=== PATIENT | female | born 1970 | race African-American/Black ===

== ENCOUNTER 2020-08-22 13:56 | Inpatient (IN) | payer OTHER ==
[2020-08-22] MEDS ORDERED: MAG HYDROX/AL HYDROX/SIMETH 30 ML UNIT-DOSE CUP PO PRN (14:58)
[2020-08-22] MEDS ORDERED: MAGNESIUM HYDROX 2400MG/30ML ORAL SUSPENSION 30 ML CUP PO PRN (14:58)
[2020-08-22] MEDS ORDERED: ACETAMINOPHEN 325 MG TABLET (FP) PO PRN ×2 (14:58)
[2020-08-22] MEDS ORDERED: MENTHOL/PHENOL 1 EACH UD MM PRN (14:58)
[2020-08-22] MEDS ORDERED: MAGNESIUM CITRATE 300 ML BOTTLE PO PRN (14:58)
[2020-08-22] MEDS ORDERED: ONDANSETRON *ODT* 4 MG TABLET SL PRN (14:58)
[2020-08-22] MEDS ORDERED: BISMUTH SUBSALICYLATE 524 MG/30 ML UD PO PRN (14:58)
[2020-08-22 15:37] VITALS: BMI 32.9
[2020-08-22 16:43] LABS: HEMATOCRIT 38.4 % (32.4-45.2); HEMOGLOBIN 13.7 GM/dL (10.7-15.3); MCH 35.8 pg (25.7-33.7); MCHC 35.6 g/dl (32.0-36.0); MEAN CELL VOLUME 100.6 fl (80-96); MEAN PLT VOLUME 7.7 fl (7.5-11.1); PLATELET COUNT 348 K/MM3 (134-434); RBC 3.81 M/mm3 (3.60-5.2); WHITE BLOOD COUNT 6.9 K/mm3 (4.0-10.0)
[2020-08-22 16:50] LABS: CALCIUM 8.7 mg/dL (8.5-10.1)
[2020-08-22 16:51] LABS: ALBUMIN 3.5 g/dl (3.4-5.0); BLOOD UREA NITROGEN 12.6 mg/dL (7-18)
[2020-08-22 16:54] LABS: CREATININE 1.4 mg/dL (0.55-1.3)
[2020-08-22 16:55] LABS: BILIRUBIN,TOTAL 0.6 mg/dL (0.2-1); TOT PROT 8.2 g/dl (6.4-8.2)
[2020-08-22 17:34] LABS: POTASSIUM 2.6 mmol/L (3.5-5.1)
[2020-08-22] MEDS: chlordiazePOXIDE HCL 25 MG CAPSULE PO SCH ×2 (17:39→22:27)
[2020-08-22] MEDS ORDERED: POTASSIUM CHLORIDE ORAL LIQUID 20 MEQ/15 ML PO ONE (17:39)
[2020-08-22] MEDS: METHOCARBAMOL 500 MG TABLET PO PRN ×2 (17:41→22:27)
[2020-08-22] MEDS: PRENATAL VITAMINS W/ FOLIC ACID TABLET (FP) PO SCH (17:43)
[2020-08-22] MEDS ORDERED: hydrOXYzine PAMOATE 25 MG CAPSULE (FP) PO SCH (18:00)
[2020-08-22] MEDS: chlordiazePOXIDE HCL 25 MG CAPSULE PO PRN (20:15)
[2020-08-22] MEDS: IBUPROFEN 400 MG TABLET (FP) PO PRN (20:16)
[2020-08-22] MEDS: THIAMINE HCL 100 MG TABLET (FP) PO SCH (22:26)
[2020-08-22] MEDS: MELATONIN 5 MG TABLETS PO SCH (22:28)
[2020-08-23] MEDS: chlordiazePOXIDE HCL 25 MG CAPSULE PO SCH ×4 (06:33→22:22)
[2020-08-23] MEDS: IBUPROFEN 400 MG TABLET (FP) PO PRN ×2 (06:36→13:10)
[2020-08-23] MEDS: METHOCARBAMOL 500 MG TABLET PO PRN ×2 (06:36→13:10)
[2020-08-23] MEDS: PRENATAL VITAMINS W/ FOLIC ACID TABLET (FP) PO SCH (10:49)
[2020-08-23] MEDS ORDERED: BICTEGRAV/EMTRICIT/TENOFOV (BIKTARVY) 50-200-25 MG TABLET PO SCH (11:00)
[2020-08-23] MEDS: chlordiazePOXIDE HCL 25 MG CAPSULE PO PRN ×2 (13:10→20:04)
[2020-08-23] MEDS: BICTEGRAV/EMTRICIT/TENOFOV (BIKTARVY) 50-200-25 MG TABLET PO SCH (13:12)
[2020-08-23] MEDS: THIAMINE HCL 100 MG TABLET (FP) PO SCH (22:24)
[2020-08-23] MEDS: MELATONIN 5 MG TABLETS PO SCH (22:24)
[2020-08-24] MEDS: chlordiazePOXIDE HCL 25 MG CAPSULE PO SCH ×4 (05:57→22:24)
[2020-08-24] MEDS: BICTEGRAV/EMTRICIT/TENOFOV (BIKTARVY) 50-200-25 MG TABLET PO SCH (07:19)
[2020-08-24] MEDS: METHOCARBAMOL 500 MG TABLET PO PRN ×2 (08:39→17:40)
[2020-08-24] MEDS: IBUPROFEN 400 MG TABLET (FP) PO PRN ×2 (08:40→17:40)
[2020-08-24] MEDS ORDERED: PANTOPRAZOLE 40 MG TABLET PO SCH ×2 (10:00)
[2020-08-24] MEDS: PRENATAL VITAMINS W/ FOLIC ACID TABLET (FP) PO SCH (10:10)
[2020-08-24] MEDS: POTASSIUM CHLORIDE ORAL LIQUID 20 MEQ/15 ML PO SCH ×2 (10:43→22:24)
[2020-08-24] MEDS: LIDOCAINE 5% TOPICAL PATCH TP SCH (11:28)
[2020-08-24] MEDS: NEOMYCIN/POLYMYXN/HC OTIC SUSPENSION 10 ML BOTTLE AS SCH ×2 (13:21→23:56)
[2020-08-24] MEDS ORDERED: MELATONIN 5 MG TABLETS PO ONE (20:53)
[2020-08-24] MEDS ORDERED: LIDOCAINE PATCH REMOVAL MC SCH (22:00)
[2020-08-24] MEDS: THIAMINE HCL 100 MG TABLET (FP) PO SCH (22:24)
[2020-08-24] MEDS: MELATONIN 5 MG TABLETS PO SCH (22:28)
[2020-08-25] MEDS ORDERED: chlordiazePOXIDE HCL 10 MG CAPSULE PO PRN
[2020-08-25] MEDS ORDERED: PANTOPRAZOLE 40 MG TABLET PO SCH (06:00)
[2020-08-25] MEDS: chlordiazePOXIDE HCL 10 MG CAPSULE PO SCH ×3 (06:27→17:10)
[2020-08-25] MEDS: IBUPROFEN 400 MG TABLET (FP) PO PRN ×2 (06:30→15:07)
[2020-08-25] MEDS: METHOCARBAMOL 500 MG TABLET PO PRN ×2 (06:30→15:07)
[2020-08-25] MEDS: NEOMYCIN/POLYMYXN/HC OTIC SUSPENSION 10 ML BOTTLE AS SCH ×3 (06:37→15:20)
[2020-08-25] MEDS: BICTEGRAV/EMTRICIT/TENOFOV (BIKTARVY) 50-200-25 MG TABLET PO SCH (07:00)
[2020-08-25] MEDS: PRENATAL VITAMINS W/ FOLIC ACID TABLET (FP) PO SCH (10:22)
[2020-08-25] MEDS: POTASSIUM CHLORIDE ORAL LIQUID 20 MEQ/15 ML PO SCH (10:22)
[2020-08-25] MEDS: LIDOCAINE 5% TOPICAL PATCH TP SCH (10:23)
[2020-08-25 13:07] LABS: POTASSIUM 4.1 mmol/L (3.5-5.1)
[2020-08-25 13:16] LABS: ALBUMIN 3.2 g/dl (3.4-5.0); BLOOD UREA NITROGEN 22.1 mg/dL (7-18); CALCIUM 9.5 mg/dL (8.5-10.1)
[2020-08-25 13:29] LABS: BILIRUBIN,TOTAL 0.4 mg/dL (0.2-1); CREATININE 1.7 mg/dL (0.55-1.3); TOT PROT 6.8 g/dl (6.4-8.2)
[2020-08-25 17:40] VITALS: BP 100/69; PULSE 101; TEMP 97.7
[2020-08-26] MEDS ORDERED: chlordiazePOXIDE HCL 10 MG CAPSULE PO SCH (05:00)
[2020-08-27] MEDS ORDERED: chlordiazePOXIDE HCL 10 MG CAPSULE PO ONE (05:00)
== END 2020-08-25 20:11 | disposition home or self-care (01) | DRG 775 ==
LOC: YASAS 13:56 → Y3N 15:39 → UNDOADMIN 15:39 → Y6N 15:45
PROVIDERS: ADMIT Allergy & Immunology; ATTEND Allergy & Immunology
PROC: HZ2ZZZZ Detoxification Services for Substance Abuse Treatment (ICD-10-PCS; principal; 2020-08-22)
DX: F10.230 Alcohol dependence with withdrawal, uncomplicated (principal); F12.20 Cannabis dependence, uncomplicated; Z21 Asymptomatic human immunodeficiency virus [HIV] infection status; K21.9 Gastro-esophageal reflux disease without esophagitis; H92.01 Otalgia, right ear; M25.561 Pain in right knee; M25.562 Pain in left knee; R79.89 Other specified abnormal findings of blood chemistry; Z87.891 Personal history of nicotine dependence; Z88.8 Allergy status to other drugs, medicaments and biological substances
CPT/HCPCS: 36415; 80053; 84132; 85027; 86780; 93005; 93010; C9803; U0003

== ENCOUNTER 2021-04-24 11:12 | Inpatient (IN) | payer OTHER ==
[2021-04-24] MEDS ORDERED: ACETAMINOPHEN 325 MG TABLET (FP) PO PRN ×2 (13:19)
[2021-04-24] MEDS ORDERED: IBUPROFEN 400 MG TABLET (FP) PO PRN (13:19)
[2021-04-24] MEDS ORDERED: BISMUTH SUBSALICYLATE 262 MG/15 ML BTL PO PRN (13:19)
[2021-04-24] MEDS ORDERED: MAGNESIUM CITRATE 300 ML BOTTLE PO PRN (13:19)
[2021-04-24] MEDS ORDERED: MAG HYDROX/AL HYDROX/SIMETH 30 ML UNIT-DOSE CUP PO PRN (13:19)
[2021-04-24] MEDS ORDERED: MAGNESIUM HYDROX 2400MG/30ML ORAL SUSPENSION 30 ML CUP PO PRN (13:19)
[2021-04-24] MEDS ORDERED: NICOTINE 10 MG CARTRIDGE (INHALER) IH PRN (13:19)
[2021-04-24] MEDS ORDERED: MENTHOL/PHENOL 1 EACH UD MM PRN (13:19)
[2021-04-24 13:26] VITALS: BMI 35.4
[2021-04-24] MEDS ORDERED: ONDANSETRON *ODT* 4 MG TABLET ONE (14:18)
[2021-04-24] MEDS: ONDANSETRON *ODT* 4 MG TABLET SL PRN (14:20)
[2021-04-24] MEDS ORDERED: LORazepam 2 MG TABLET ONE (14:22)
[2021-04-24] MEDS ORDERED: hydrOXYzine PAMOATE 25 MG CAPSULE (FP) PO ONE (14:22)
[2021-04-24] MEDS: hydrOXYzine PAMOATE 25 MG CAPSULE (FP) PO SCH ×3 (14:24→22:26)
[2021-04-24] MEDS: LORazepam 2 MG TABLET PO SCH ×3 (14:24→22:26)
[2021-04-24] MEDS: PANTOPRAZOLE 40 MG TABLET PO SCH (15:48)
[2021-04-24] MEDS ORDERED: MELATONIN 5 MG TABLETS PO SCH (22:00)
[2021-04-24] MEDS: THIAMINE HCL 100 MG TABLET (FP) PO SCH (22:27)
[2021-04-25] MEDS: hydrOXYzine PAMOATE 25 MG CAPSULE (FP) PO SCH ×2 (05:43→10:19)
[2021-04-25] MEDS: LORazepam 2 MG TABLET PO SCH ×3 (05:44→17:34)
[2021-04-25] MEDS: ONDANSETRON *ODT* 4 MG TABLET SL PRN ×2 (05:46→17:36)
[2021-04-25] MEDS: LORazepam 1 MG TABLET PO PRN ×2 (07:50→13:24)
[2021-04-25] MEDS ORDERED: BICTEGRAV/EMTRICIT/TENOFOV (BIKTARVY) 50-200-25 MG TABLET PO SCH (08:00)
[2021-04-25] MEDS: PRENATAL VITAMINS W/ FOLIC ACID TABLET (FP) PO SCH (10:19)
[2021-04-25] MEDS: METHOCARBAMOL 500 MG TABLET PO PRN ×2 (10:19→22:16)
[2021-04-25] MEDS: PANTOPRAZOLE 40 MG TABLET PO SCH (10:20)
[2021-04-25 10:52] LABS: HEMATOCRIT 31.5 % (32.4-45.2); HEMOGLOBIN 10.8 GM/dL (10.7-15.3); MCH 35.3 pg (25.7-33.7); MCHC 34.1 g/dl (32.0-36.0); MEAN CELL VOLUME 103.6 fl (80-96); PLATELET COUNT 176 10^3/uL (134-434); RBC 3.05 M/mm3 (3.60-5.2); RDW 17.5 % (11.6-15.6); WHITE BLOOD COUNT 4.4 K/mm3 (4.0-10.0)
[2021-04-25 10:56] LABS: ALBUMIN 3.4 g/dl (3.4-5.0); BLOOD UREA NITROGEN 22.4 mg/dL (7-18); CALCIUM 8.1 mg/dL (8.5-10.1)
[2021-04-25 10:59] LABS: CREATININE 1.9 mg/dL (0.55-1.3)
[2021-04-25 11:01] LABS: BILIRUBIN,TOTAL 0.7 mg/dL (0.2-1); TOT PROT 7.1 g/dl (6.4-8.2)
[2021-04-25] MEDS ORDERED: POTASSIUM CHLORIDE ORAL LIQUID 20 MEQ/15 ML PO ONE (13:30)
[2021-04-25] MEDS: hydrOXYzine PAMOATE 50 MG CAPSULE (FP) PO PRN ×2 (17:35→22:12)
[2021-04-25] MEDS: LOPERAMIDE HCL 2 MG CAPSULE PO PRN (21:12)
[2021-04-25] MEDS: THIAMINE HCL 100 MG TABLET (FP) PO SCH (22:12)
[2021-04-25] MEDS ORDERED: LORazepam 2 MG TABLET PO ONE (23:27)
[2021-04-26] MEDS: PANTOPRAZOLE 40 MG TABLET PO SCH (06:02)
[2021-04-26] MEDS: LORazepam 1 MG TABLET PO SCH ×4 (06:04→22:09)
[2021-04-26] MEDS: PRENATAL VITAMINS W/ FOLIC ACID TABLET (FP) PO SCH (10:23)
[2021-04-26] MEDS: LIDOCAINE 5% TOPICAL PATCH TP SCH (10:23)
[2021-04-26] MEDS: METHOCARBAMOL 500 MG TABLET PO PRN ×2 (10:23→17:39)
[2021-04-26] MEDS: hydrOXYzine PAMOATE 50 MG CAPSULE (FP) PO PRN ×3 (10:28→22:09)
[2021-04-26] MEDS: LORazepam 1 MG TABLET PO PRN (13:46)
[2021-04-26 22:07] LABS: PHOSPHOROUS 4.2 mg/dL (2.5-4.9)
[2021-04-26] MEDS: THIAMINE HCL 100 MG TABLET (FP) PO SCH (22:07)
[2021-04-26] MEDS: LIDOCAINE PATCH REMOVAL MC SCH (23:00)
[2021-04-27] MEDS ORDERED: LORazepam 0.5 MG TABLET PO PRN
[2021-04-27] MEDS: LOPERAMIDE HCL 2 MG CAPSULE PO PRN (00:45)
[2021-04-27] MEDS: ONDANSETRON *ODT* 4 MG TABLET SL PRN (00:46)
[2021-04-27] MEDS: PANTOPRAZOLE 40 MG TABLET PO SCH (05:32)
[2021-04-27] MEDS: hydrOXYzine PAMOATE 50 MG CAPSULE (FP) PO PRN ×5 (05:33→22:33)
[2021-04-27] MEDS: LORazepam 0.5 MG TABLET PO SCH ×4 (05:33→22:33)
[2021-04-27] MEDS: PRENATAL VITAMINS W/ FOLIC ACID TABLET (FP) PO SCH (10:33)
[2021-04-27] MEDS: LIDOCAINE 5% TOPICAL PATCH TP SCH (10:33)
[2021-04-27] MEDS: METHOCARBAMOL 500 MG TABLET PO PRN ×2 (10:33→22:33)
[2021-04-27 17:45] LABS: ALBUMIN 3.2 g/dl (3.4-5.0); BLOOD UREA NITROGEN 16.1 mg/dL (7-18); CALCIUM 8.7 mg/dL (8.5-10.1)
[2021-04-27 17:48] LABS: CREATININE 1.2 mg/dL (0.55-1.3); PHOSPHOROUS 2.4 mg/dL (2.5-4.9)
[2021-04-27] MEDS: LIDOCAINE PATCH REMOVAL MC SCH (22:33)
[2021-04-27] MEDS: THIAMINE HCL 100 MG TABLET (FP) PO SCH (22:33)
[2021-04-28] MEDS ORDERED: LORazepam 0.5 MG TABLET PO ONE (05:00)
[2021-04-28] MEDS: hydrOXYzine PAMOATE 50 MG CAPSULE (FP) PO PRN (05:20)
[2021-04-28] MEDS: PANTOPRAZOLE 40 MG TABLET PO SCH (05:21)
[2021-04-28 05:54] VITALS: TEMP 97.8
[2021-04-28 09:16] VITALS: BP 120/79
[2021-04-28 09:39] VITALS: PULSE 98
[2021-04-28] MEDS: LIDOCAINE 5% TOPICAL PATCH TP SCH (09:43)
[2021-04-28] MEDS: PRENATAL VITAMINS W/ FOLIC ACID TABLET (FP) PO SCH (09:44)
[2021-04-28] MEDS: ONDANSETRON *ODT* 4 MG TABLET SL PRN (09:46)
== END 2021-04-28 09:46 | disposition home or self-care (01) | DRG 775 ==
LOC: YASAS 11:12 → Y6N 14:08
PROVIDERS: ADMIT Allergy & Immunology; ATTEND Allergy & Immunology
PROC: HZ2ZZZZ Detoxification Services for Substance Abuse Treatment (ICD-10-PCS; principal; 2021-04-24)
DX: F10.230 Alcohol dependence with withdrawal, uncomplicated (principal); F12.20 Cannabis dependence, uncomplicated; F17.210 Nicotine dependence, cigarettes, uncomplicated; F41.9 Anxiety disorder, unspecified; Z21 Asymptomatic human immunodeficiency virus [HIV] infection status; G62.9 Polyneuropathy, unspecified; K21.9 Gastro-esophageal reflux disease without esophagitis; Z62.810 Personal history of physical and sexual abuse in childhood; Z88.8 Allergy status to other drugs, medicaments and biological substances
CPT/HCPCS: 36415; 80053; 80069; 81025; 82962; 84100; 85027; 86780; C9803; Q0162; U0003; U0005

== ENCOUNTER 2024-11-10 16:27 | Inpatient (IN) | payer OTHER ==
[2024-11-10 16:48] VITALS: BMI 38.7
[2024-11-10] MEDS ORDERED: IBUPROFEN 400 MG TABLET (FP) PO PRN (17:13)
[2024-11-10] MEDS ORDERED: POLYETHYLENE GLYCOL (HEALTHYLAX) 3350 17 GM PACKET PO PRN (17:13)
[2024-11-10] MEDS ORDERED: ACETAMINOPHEN 325 MG TABLET (FP) PO PRN (17:13)
[2024-11-10] MEDS ORDERED: BENZOCAINE/MENTHOL (CHLORASEPTIC ) LOZENGE MM PRN (17:13)
[2024-11-10] MEDS ORDERED: MAG HYDROX/AL HYDROX/SIMETH 30 ML UNIT-DOSE CUP PO PRN (17:13)
[2024-11-10] MEDS ORDERED: NALOXONE (NARCAN) HCL 4 MG/0.1 ML SPRAY NS PRN (17:13)
[2024-11-10] MEDS ORDERED: guaiFENesin 600 MG TABLET.ER (FP) PO PRN (17:13)
[2024-11-10] MEDS ORDERED: BISMUTH SUBSALICYLATE 524 MG/30 ML PO PRN (17:13)
[2024-11-10] MEDS ORDERED: BENZONATATE 200 MG CAPSULE PO PRN (17:13)
[2024-11-10] MEDS ORDERED: LOPERAMIDE HCL 2 MG CAPSULE PO PRN (17:13)
[2024-11-10] MEDS: hydrOXYzine PAMOATE 25 MG CAPSULE (FP) PO PRN (19:10)
[2024-11-10] MEDS: METHOCARBAMOL 500 MG TABLET PO PRN (19:10)
[2024-11-10] MEDS: ONDANSETRON *ODT* 4 MG TABLET SL PRN (20:13)
[2024-11-10] MEDS: MELATONIN 5 MG TABLETS PO SCH (21:16)
[2024-11-10] MEDS: chlordiazePOXIDE HCL 25 MG CAPSULE PO ONE (21:16)
[2024-11-10] MEDS: propRANOLol HCL 10 MG TABLET PO ONE (21:16)
[2024-11-10] MEDS: THIAMINE 100 MG TABLET PO SCH (21:16)
[2024-11-10] MEDS: chlordiazePOXIDE HCL 25 MG CAPSULE PO SCH (23:12)
[2024-11-10] MEDS: DICYCLOMINE HCL 10 MG CAPSULE PO PRN (23:12)
[2024-11-11] MEDS: BICTEGRAV/EMTRICIT/TENOFOV (BIKTARVY) 50-200-25 MG TABLET PO SCH ×2 (08:44→17:16)
[2024-11-11] MEDS: PANTOPRAZOLE 40 MG TABLET PO SCH (10:21)
[2024-11-11] MEDS: PRENATAL VITAMINS W/ FOLIC ACID TABLET (FP) PO SCH (10:21)
[2024-11-11 11:28] LABS: HEMATOCRIT 27.5 % (34.1-44.9); HEMOGLOBIN 8.8 g/dL (11.2-15.7); MEAN CELL VOLUME 89.9 fl (79.4-94.8); PLATELET COUNT 229 x10^3/uL (182-369); RDW 14.6 % (12.3-16.6)
[2024-11-11 11:41] LABS: CHLORIDE 102 mmol/L (98-107); POTASSIUM 3.7 mmol/L (3.5-5.1); SODIUM 135 mmol/L (136-145)
[2024-11-11 11:43] LABS: CALCIUM 8.8 mg/dL (8.5-10.1)
[2024-11-11 11:44] LABS: ALBUMIN 3.3 g/dl (3.4-5.0); ANION GAP 7 mmol/L (4-13); CO2 27 mmol/L (21-32); GLUCOSE,RANDOM 93 mg/dL (74-106)
[2024-11-11 11:46] LABS: BLOOD UREA NITROGEN 33.6 mg/dL (7-18)
[2024-11-11 11:47] LABS: SGOT/AST 32 U/L (15-37)
[2024-11-11 11:49] LABS: ALK PHOS 85 U/L (45-117); CREATININE 1.2 mg/dL (0.55-1.3)
[2024-11-11 11:50] LABS: BILIRUBIN,TOTAL 0.5 mg/dL (0.2-1)
[2024-11-11 11:51] LABS: SGPT/ALT 36 U/L (13-61)
[2024-11-11] MEDS: IBUPROFEN 600 MG TABLET (FP) PO PRN (17:14)
[2024-11-12] MEDS: chlordiazePOXIDE HCL 25 MG CAPSULE PO SCH (05:51)
[2024-11-12 11:19] LABS: ABSOLUTE IMMATURE GRANULOCYTES 0.07 x10^3/uL (0.0-0.031); BASOPHILS # 0.05 x10^3/uL (0.01-0.08); EOSINOPHIL % 1.3 % (0.7-5.8); EOSINOPHILS # 0.16 x10^3/uL (0.04-0.36); HEMATOCRIT 28.3 % (34.1-44.9); HEMOGLOBIN 9.1 g/dL (11.2-15.7); MCHC 32.2 g/dl (32.2-35.5); MEAN CELL VOLUME 91.9 fl (79.4-94.8); MEAN PLT VOLUME 10.2 fl (9.4-12.3); MONOCYTE # 0.66 x10^3/uL (0.24-0.86); MONOCYTE % 5.3 % (4.7-12.5); PLATELET COUNT 226 x10^3/uL (182-369); RDW 15.1 % (12.3-16.6)
[2024-11-12] MEDS: MAGNESIUM HYDROX 2400MG/30ML ORAL SUSPENSION 30 ML CUP PO PRN (14:32)
[2024-11-12] MEDS: BISACODYL 5 MG TABLET.DR (FP) PO SCH (14:32)
[2024-11-12] MEDS: chlordiazePOXIDE HCL 25 MG CAPSULE PO PRN (14:35)
[2024-11-12] MEDS: BISACODYL 5 MG TABLET.DR (FP) PO ONE (15:51)
[2024-11-12 18:38] LABS: EPI CELLS 26 /uL (0-25.1); HYALINE CASTS 1 /uL (0-3.1); URINE APPEARANCE TURBID; URINE BACTERIA 47 /uL (0-1359); URINE BILIRUBIN NEGATIVE (NEGATIVE); URINE COLOR YELLOW; URINE GLUCOSE (UA) NEGATIVE (NEGATIVE); URINE KETONE NEGATIVE (NEGATIVE); URINE LEUK ESTERASE 2+ (NEGATIVE); URINE NITRITE NEGATIVE (NEGATIVE); URINE PROTEIN NEGATIVE (NEGATIVE); URINE RBC 7 /uL (0-23.9); URINE UROBILINOGEN 0.2 mg/dL (0.2-1.0)
[2024-11-12 21:33] LABS: URINE CRYSTALS SEEN /hpf
[2024-11-13] MEDS: chlordiazePOXIDE HCL 10 MG CAPSULE PO SCH (05:45)
[2024-11-13] MEDS: chlordiazePOXIDE HCL 10 MG CAPSULE PO PRN (13:30)
[2024-11-13] MEDS: SULFAMETHOXAZOLE/TRIMETHOPRIM 800MG/160MG D.S. TABLET PO SCH (13:42)
[2024-11-14] MEDS: chlordiazePOXIDE HCL 10 MG CAPSULE PO SCH (05:45)
[2024-11-14 06:53] VITALS: TEMP 97.6
[2024-11-14 09:43] VITALS: BP 115/74; PULSE 90; RESP 18
[2024-11-15] MEDS ORDERED: chlordiazePOXIDE HCL 10 MG CAPSULE PO ONE (05:00)
== END 2024-11-14 09:49 | disposition home or self-care (01) | DRG 775 ==
LOC: YASAS 16:27 → Y6N 17:50
PROVIDERS: ADMIT Allergy & Immunology; ATTEND Allergy & Immunology
PROC: HZ2ZZZZ Detoxification Services for Substance Abuse Treatment (ICD-10-PCS; principal; 2024-11-10)
DX: F10.230 Alcohol dependence with withdrawal, uncomplicated (principal); F17.210 Nicotine dependence, cigarettes, uncomplicated; F10.282 Alcohol dependence with alcohol-induced sleep disorder; F10.280 Alcohol dependence with alcohol-induced anxiety disorder; Z21 Asymptomatic human immunodeficiency virus [HIV] infection status; K21.9 Gastro-esophageal reflux disease without esophagitis; N39.0 Urinary tract infection, site not specified; B96.89 Other specified bacterial agents as the cause of diseases classified elsewhere; Z79.899 Other long term (current) drug therapy; Z88.8 Allergy status to other drugs, medicaments and biological substances; Z87.19 Personal history of other diseases of the digestive system
CPT/HCPCS: 36415; 80053; 80305; 80307; 81003; 81025; 84484; 85025; 85027; 86780; 87086; 93005; 93010; Q0162